=== PATIENT | male | born 1980 | race Caucasian/White ===

== ENCOUNTER → 2017-11-19 09:18 | Outpatient (CLI) | payer OTHER, SELFPAY ==
[2017-11-19 10:26] LABS: Cholesterol 180 mg/dL (200); Follicle Stimulating Hormone 5.5 mIU/mL; Glucose 90 mg/dL (74-106); High Density Lipoprotein 42 mg/dL; Luteinizing Hormone 7.1 mIU/mL; Thyroid Stim Hormone (TSH) 2.01 uIU/mL (0.358-3.74); Triglycerides 106 mg/dL; Very Low Density Lipoprotein 21 mg/dL (5-40)
== END ==
PROVIDERS: Family Provider Family Medicine; PCP Family Medicine; Visit Provider Family Medicine
DX: E29.1 Testicular hypofunction (principal); R63.5 Abnormal weight gain; Z13.1 Encounter for screening for diabetes mellitus; Z13.220 Encounter for screening for lipoid disorders
CPT/HCPCS: 36415; 80061; 82947; 83001; 83002; 84403; 84439; 84443

== ENCOUNTER → 2018-01-13 08:25 | Outpatient (CLI) | payer OTHER, SELFPAY ==
--- NOTE | 2018-01-13 08:27 | RAD_ITS ---
STUDY: X-RAY - LEFT HAND REASON FOR EXAM: Laceration over the thumb. TECHNIQUE: 3 view(s) of the hand. COMPARISON: None. FINDINGS: Normal radiocarpal articulation. Normal distal radioulnar joint. Normal visualized carpal bones. Normal carpal articulations Normal carpometacarpal articulation of the thumb. Normal second through fifth carpometacarpal joints. Normal metacarpi. Normal metacarpophalangeal joint of the thumb. Normal interphalangeal joint of the thumb. Normal proximal and distal phalanges of the thumb. Normal metacarpophalangeal joints of the second through fifth fingers. Normal proximal and distal interphalangeal joints of the second through fifth fingers. Normal phalanges of the second through fifth fingers. The soft tissue structures are unremarkable. RAD/Hand Min 3 Views IMPRESSION: Unremarkable x-ray examination of the left hand. Electronically Signed: Hilario Fung MD at 14:19 EDT Tel , Service support ,
== END ==
PROVIDERS: Family Provider Family Medicine; PCP Family Medicine; Visit Provider Orthopaedic Surgery
DX: S66.222A Laceration of extensor muscle, fascia and tendon of left thumb at wrist and hand level, initial encounter (principal); X58.XXXA Exposure to other specified factors, initial encounter; Y93.9 Activity, unspecified; Y92.9 Unspecified place or not applicable; Y99.9 Unspecified external cause status
CPT/HCPCS: 73130

== ENCOUNTER 2018-01-18 08:43 | Day surgery (SDC) | payer OTHER, SELFPAY ==
[2018-01-18 09:04] VITALS: BP 132/90; PULSE 98; RESP 16; TEMP 36.7; O2SAT 95; BMI 32.4
[2018-01-18] MEDS: Cefazolin 2 GM in 0.9% Normal Saline 100 ML IV (09:41)
[2018-01-18] MEDS: Mupirocin Ointment 22gm Tube 1 APPLIC (11:41)
--- NOTE | 2018-01-18 11:45 | PCM.DC.ORTHO ---
Discharge Diet: No Restrictions - Keep splint on at all times, follow-up in 2 weeks, call if increased pain numbness tingling or other issues arise, if splint gets wet follow-up in office for reapplication Discharge Activity: May Not Drive May shower in (days): 1 Ice area for (Minutes): 20 - Every hour while awake. Weight Bearing Status: Weight bearing as tolerated Keep extremity elevated above heart level: Operative Extremity Call your doctor if your incision/area has: Continuous Slow Oozing, Sudden Increased Bleeding, Increased Pain/ Swelling, Increased Redness, Foul Smelling Discharge Call your doctor if you observe: Fever of 101 or Higher, Coldness, Increased Pain, Numbness or Tingling, Change in Color, Calf discomfort Allergies/Adverse Reactions: Allergies No Known Allergies Allergy (Verified 01/17/18 08:11) Medications to take at Discharge cephalexin 500 mg capsule 500 mg PO Q12H 10 Days #20 cap 01/13/18 Hydrocodone Bitart/Apap 5-325 [[place] 5MG-325MG] 1 - 2 tablet PO Q6H PRN PRN 7 Days #30 tablet 01/18/18 The following prescriptions were given: Hydrocodone Bitart/Apap 5-325 [[place] 5MG-325MG] 1 - 2 tablet PO Q6H PRN PRN 7 Days #30 tablet PRN Reason: Pain Primary Care Physician: Israel Blunt MD [Primary Care Provider] - Please Follow Up With: Nicol Obrien, - [phone]
--- NOTE | 2018-01-18 11:45 | PCM.OPRPT ---
Report of Operation Date of Procedure: 01/18/18 Pre-Operative Diagnosis: Left thumb extensor tendon laceration Post-Operative Diagnosis: same, EPL lack Surgery/Procedure Performed:: Left thumb exploration irrigation debridement wound exploration with left extensor tendon repair and extensor teague repair at level of MP joint Type of Anesthesia:: Block,Radha Anesthesiologist: Sean Barrios Estimated Blood Loss (mL): none Fluids Replaced: 1200ml LR Description of Procedure: Preoperative note Patient is a 37-year-old male who was injured at work when he had a razor blade that using his right hand and sliced through his phalanx of his left thumb. Seen by the now clinic and extensor tendon was obviously well. Seen in our clinic evaluate he is unable to extend his IP joint was but was able to extend his MP joint. Discussion at that point was for irrigation debridement and repair is indicated for his left thumb. Risks benefits and alternatives surgery discussed with patient. Risks including but not limited to blood loss, blood clot, infection, neurovascular injury, failure procedure, need for revision surgery, stiffness, loss of life and loss of limb. Patient is aware like proceed with left extensors tendon repair irrigation debridement wound exploration repair is indicated. Operative note Seen and examined in preoperative holding area. Left thumb was marked. Patient was brought to the operating room placed supine on the operating table. Signing, anesthesia, antibiotics were administered. The left arm was prepped and draped in usual sterile fashion after [place] block was initiated. We used his laceration and extended our incision about a half a centimeter distally and about a centimeter to 2 cm proximally. We then were able to dissect down we will able to visualize the tear of the laceration. The laceration actually went down and was underneath the incorporated into the extensor teague. We had excised the teague of the MP joint we then able to debride back the tendons on the proximal distal to clean tendon edge we then and Krak?w fashion placed to 5-0 Ethibond each extensor compartment to refer EPL repair. We repaired the extensor tendon with the thumb had held in extension we had good active repair in both limbs of the extensor tendon. We then moved to our teague repair we then repaired the teague with Vicryl. We irrigated the incision with copious amounts sterile saline. The incision was closed with deep subcutaneous 4-0 Vicryl and the skin was closed with interrupted 4-0 nylon stitches. Sterile dressings were applied the patient was placed in an extension splint and the tourniquet was deflated for total working time of 60 minutes. The patient tolerated procedure well there are no complications. Next post Operative plan Patient to follow-up in office in 2 weeks Keep incision clean and dry Initiation of occupational therapy in 2 weeks This note was generated with [employer] dictation software. It may contain incorrect words, spelling, and punctuation that were not noted in checking the note before signing.
--- NOTE | 2018-01-18 11:51 | OP.PCM_ITS ---
Report of Operation Date of Procedure: 01/18/18 Pre-Operative Diagnosis: Left thumb extensor tendon laceration Post-Operative Diagnosis: same, EPL lack Surgery/Procedure Performed:: Left thumb exploration irrigation debridement wound exploration with left extensor tendon repair and extensor teague repair at level of MP joint Type of Anesthesia:: Block,Radha Anesthesiologist: Sean Barrios Estimated Blood Loss (mL): none Fluids Replaced: 1200ml LR Description of Procedure: Preoperative note Patient is a 37-year-old male who was injured at work when he had a razor blade that using his right hand and sliced through his phalanx of his left thumb. Seen by the now clinic and extensor tendon was obviously well. Seen in our clinic evaluate he is unable to extend his IP joint was but was able to extend his MP joint. Discussion at that point was for irrigation debridement and repair is indicated for his left thumb. Risks benefits and alternatives surgery discussed with patient. Risks including but not limited to blood loss, blood clot, infection, neurovascular injury, failure procedure, need for revision surgery, stiffness, loss of life and loss of limb. Patient is aware like proceed with left extensors tendon repair irrigation debridement wound exploration repair is indicated. Operative note Seen and examined in preoperative holding area. Left thumb was marked. Patient was brought to the operating room placed supine on the operating table. Signing, anesthesia, antibiotics were administered. The left arm was prepped and draped in usual sterile fashion after [place] block was initiated. We used his laceration and extended our incision about a half a centimeter distally and about a centimeter to 2 cm proximally. We then were able to dissect down we will able to visualize the tear of the laceration. The laceration actually went down and was underneath the incorporated into the extensor teague. We had excised the teague of the MP joint we then able to debride back the tendons on the proximal distal to clean tendon edge we then and Krak?w fashion placed to 5- 0 Ethibond each extensor compartment to refer EPL repair. We repaired the extensor tendon with the thumb had held in extension we had good active repair in both limbs of the extensor tendon. We then moved to our teague repair we then repaired the teague with Vicryl. We irrigated the incision with copious amounts sterile saline. The incision was closed with deep subcutaneous 4-0 Vicryl and the skin was closed with interrupted 4-0 nylon stitches. Sterile dressings were applied the patient was placed in an extension splint and the tourniquet was deflated for total working time of 60 minutes. The patient tolerated procedure well there are no complications. Next post Operative plan Patient to follow-up in office in 2 weeks Keep incision clean and dry Initiation of occupational therapy in 2 weeks This note was generated with [employer] dictation software. It may contain incorrect words, spelling, and punctuation that were not noted in checking the note before signing.
[2018-01-18 11:57] VITALS: BP 132/90; BP 148/104; PULSE 88; RESP 16; TEMP 36.4; O2SAT 97
[2018-01-18 12:03] VITALS: BP 132/101; BP 132/90; PULSE 74; RESP 16; O2SAT 98
[2018-01-18 12:08] VITALS: BP 132/90; BP 135/103; PULSE 76; RESP 16; O2SAT 97
[2018-01-18 12:15] VITALS: BP 128/90; BP 132/90; PULSE 76; RESP 16; TEMP 36.3; O2SAT 96
[2018-01-18 12:40] VITALS: BP 132/90
== END 2018-01-18 12:43 | disposition home or self-care (01) ==
LOC: SDC 08:49 → AC 08:50
PROVIDERS: Family Provider Family Medicine; PCP Family Medicine; Visit Provider Orthopaedic Surgery
PROC: (CPT 26418; principal; 2018-01-18 11:50)
DX: S66.222A Laceration of extensor muscle, fascia and tendon of left thumb at wrist and hand level, initial encounter (principal); W26.0XXA Contact with knife, initial encounter; Y93.89 Activity, other specified; Y92.89 Other specified places as the place of occurrence of the external cause; Y99.0 Civilian activity done for income or pay; F17.200 Nicotine dependence, unspecified, uncomplicated
CPT/HCPCS: 26418; J7120; J2405

== ENCOUNTER 2018-03-30 13:00 | Outpatient (RCR) | payer OTHER, SELFPAY ==
--- NOTE | 2018-02-27 09:16 | HP.OTEVAL ---
Patient's Visit Information PAWEL WITT is a 37 year old M, referred to Occupational Therapy by Nicol Obrien DO, with a diagnosis of left thumb EPL laceration. Date of Evaluation: 02/21/18 Occupational Therapist: Carmen Laura, CHLOER/Ryan, CHT - Subjective Subjective: Pt states he injured his thumb on January 13, 2018 while working he sliced his finger with straight edge knife- pt underwent sx on January 18, 2018. pt working light duty for 6 weeks. 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 - ROM Wrist: Right 65/75 left 55/60 CMC: right 20 left 5 MP: right 60 left 0 IP: right 85 left 0 - Strength Lodging Facilities Manager: right 150 left NT Lateral Pinch: right 22 left NT Tripod Pinch: right 28 Left NT - Sensation Sensation Comments: denies - Hand/Wrist Evaluation Total Score of Pain & Functional Sections: 57 - Goals Goal:: pt will demo a increase in left breaker engineer to 90# or greater to increase ind. with BADLs and IADLS by d/c Goal:: pt will demo increase in left thumb IP flex to 40 degrees of flex. to increase ind with FMS and perfromance of BADLS and IADLS by d/c. pt will demo a increase in MP flex to 35 degrees to increase pt ind with BADLs and IADLS and FMS by d/c Goal:: pt will demo understanding of scar mtg by end of 3rd visit to decrease scar adhesions of left thumb. Goal:100% adherence to protocol: Yes Goal:Daily scar massage when approriate: Yes Goal:ROM equal to unaffected hand: Yes Goal:Lodging Facilities Manager/Pinch strength at least 75% of unaffected hand: Yes Goal:Full use of affected hand in daily activities including: Yes Goal:Decrease scar hypersensitivity: Yes - Rehabilitation General Assessment: S/P EPL repair on 01/18/18. C9 approval was for date of services 02/02/18 - 03/31/18. 2-3x week for 6 weeks-. Pt was delayed in his attendance to his inital OT evaluation 4 weeks an 4 days. with this delay in initiation of OT service pt is currently demo with limited AROM of left thumb. pt demo with scar adhesions and some scar sensitivity. OT will follow EPL tendon repair protocol and make adj to pts HEP based on clinical reasoning and protocol. Today a custom orthosis was kwesi. to cont. to place MP and IP in ext. but allow for CMC and wrist ROM. PT was instructed in Light AROM exercises to wrist and thumb. Pt was instructed to place wrist in slight flex with thumb ROM ex. Rehabilitation Potential: Good - Anticipated Interventions Anticipated Interventions: A/AAROM/PROM, Strengthening, Scar Care, Desensitization, Modalities, Orthoses - Visit Plan Frequency: 2-3x /Week Duration: 6 Weeks TEXT: Thank you for the opportunity to evaluate your patient. For Medicare and Medicare HMO plans, please review the plan of care and approve it. It will need to be FAXED BACK to us at [phone] for Medicare purposes. Please let me know if there are questions or concerns regarding this plan of care. Physician Signature: Date:
--- NOTE | 2018-03-16 16:00 | DT_ITS ---
This patient was seen during an EMR downtime March 13, 2018 - March 20, 2018. This patient may have a combination of paper and electronic documentation or all paper documentation. All documentation is viewable within the e-chart portion of [facility] for each patient visit.
--- NOTE | 2018-06-05 15:58 | HP.OT.NRP ---
HP - Discharge Summary - Patient Information PAWEL WITT was seen in my office for initial evaluation on 02/21/18. The following Plan of Care was established for this patient: Initial Frequency: 2-3x /Week Initial Duration: 6 Weeks Plan: cont to gain functional ROM for BADLs and IADLS - Anticipated Interventions Anticipated Interventions: A/AAROM/PROM, Strengthening, Scar Care, Desensitization, Modalities, Orthoses This patient was last seen in our office 03/30/18. Pertinent comments regarding their Occupational therapy will appear below: PT seen for 12 OT visits. He was progressing well- after 12 visits pt did not schedule any further apts and due to time laps in tx pt D/C at this time. At this point I will be discontinuing this patient from occupational therapy. I would be happy to see this patient again in the future if found appropriate by the physician. Thank you! Carmen Laura, OTR/L, CHT
== END 2018-03-30 19:00 | disposition home or self-care (01) ==
LOC: OT 13:00
PROVIDERS: Family Provider Family Medicine; PCP Family Medicine; Visit Provider Orthopaedic Surgery
DX: S66.222D Laceration of extensor muscle, fascia and tendon of left thumb at wrist and hand level, subsequent encounter (principal)
CPT/HCPCS: 97035; 97110; 97140; 97166

== ENCOUNTER → 2018-12-11 13:51 | Outpatient (CLI) | payer BC, SELFPAY ==
--- NOTE | 2018-12-11 13:53 | CDU_ITS ---
Reason For Study: Pulsatile Tinnitis Rt. Velocities/BP Lt. Velocities/BP Prox CCA 76/21 cm/sec. Prox CCA 75/20 cm/sec. Mid CCA 84/24 cm/sec. Mid CCA 80/27 cm/sec. Dist CCA 76/20 cm/sec. Dist CCA 68/26 cm/sec. Prox ICA 64/26 cm/sec. Prox ICA 69/29 cm/sec. Mid ICA 70/31 cm/sec. Mid ICA 71/35 cm/sec. Dist ICA 73/33 cm/sec. Dist ICA 77/35 cm/sec. Rt. ICA/CCA = 0.87. Lt. ICA/CCA = 0.96. Prox ECA 115/25 cm/sec. Prox ECA 83/21 cm/sec. Rt. Vert. 45/17 cm/sec. Lt. Vert. 38/15 cm/sec. Right Extracranial There is no significant atherosclerotic plaque noted in the right common carotid artery. There is no significant atherosclerotic plaque noted in the right internal carotid artery. There is no significant atherosclerotic plaque noted in the right external carotid artery. Antegrade flow is noted in the right vertebral artery. Left Extracranial There is no significant atherosclerotic plaque noted in the left common carotid artery. There is no significant atherosclerotic plaque noted in the left internal carotid artery. There is no significant atherosclerotic plaque noted in the left external carotid artery. Antegrade flow is noted in the left vertebral artery. Procedure Carotid Duplex [id number]. Exam performed in department. Interpretation Summary No significant atherosclerotic plaque or stenosis noted in the internal carotid arteries bilaterally. Flow within the vertebral arteries is antegrade bilaterally. Ordering Physician: Israel Blunt Referring Physician: Israel Blunt Performed By: Ramya Kong, RDCS, RVT
== END ==
PROVIDERS: Family Provider Family Medicine; PCP Family Medicine; Referring Provider Family Medicine; Visit Provider Family Medicine
DX: H93.A9 Pulsatile tinnitus, unspecified ear (principal)
CPT/HCPCS: 93880

== ENCOUNTER → 2023-05-18 | Outpatient (CLI) | payer BC, SELFPAY ==
[2023-05-18 12:02] LABS: Absolute Lymphocyte Count 2.16 X10^3/uL (0.83-4.51); Absolute Neutrophil Count 4.4 X10^3/uL (2.0-7.7); Basophil# 0.05 X10^3/uL; Basophil% 0.7 % (0-1); Eosinophil# 0.11 X10^3/uL; Eosinophils% 1.5 % (0-5); Hematocrit 48.1 % (40-54); Hemoglobin 16.6 g/dL (13.0-16.5); Lymphocyte # 2.16 X10^3/ul (0.83-4.51); Lymphocyte % 29.2 % (19-41); Mean Corp Hgb Conc 34.5 g/dL (32-36); Mean Corpuscular Hgb 30.8 pg (27.0-32.0); Mean Corpuscular Volume 89.2 fL (80-94); Mean Platelet Vol. 9.5 fl (6.2-12.0); Monocyte# 0.66 X10^3/uL; Monocyte% 8.9 % (0-10); NRBC Flagged by Analyzer 0 % (0-5); Neutrophil # 4.39 X10^3/uL (2.7-7.7); Neutrophil % 59.3 % (47-70); Platelet Count 281 K/mm3 (150-450); RBC Distribution Width CV 12.5 % (11.6-14.6); RBC Distribution Width SD 40.9 fl (35.1-43.9); Red Blood Count 5.39 M/mm3 (4.6-6.2); White Blood Count 7.4 K/mm3 (4.4-11.0)
[2023-05-18 12:22] LABS: ALB/GLOB Ratio 1.2 RATIO (0.9-2.4); AST(SGOT) 22 U/L (15-37); Alanine Aminotransfer ALT/SGPT 51 U/L (16-61); Albumin, Serum 3.7 g/dL (3.2-5.0); Alkaline Phosphatase 61 U/L (45-117); Anion Gap 5 (5-15); BUN 15 mg/dL (7-18); BUN/Creat Ratio 13.2 RATIO (10-20); Calcium,Total 8.7 mg/dL (8.5-10.1); Chloride 108 mmol/L (98-107); Cholesterol 182 mg/dL (200); Creatinine, Serum 1.14 mg/dL (0.70-1.30); EST Glomerular Filtration Rate 75 mL/min (>60); Est Glom Filt Rate - Afr Amer 91 mL/min (>60); Globulin 3.1 g/dL (2.2-4.2); Glucose 96 mg/dL (74-106); High Density Lipoprotein 44 mg/dL; PSA,Total - Annual Screen 0.99 ng/mL (0.00-4.00); Potassium 4.1 mmol/L (3.5-5.1); Protein, Total 6.8 g/dL (6.4-8.2); Sodium Level 140 mmol/L (136-145); Triglycerides 104 mg/dL; Very Low Density Lipoprotein 21 mg/dL (5-40)
== END | disposition home or self-care (01) ==
LOC: BFHLAB 08:34
PROVIDERS: PCP Nurse Practitioner Family; Referring Provider Nurse Practitioner Family; Visit Provider Nurse Practitioner Family
DX: Z00.01 Encounter for general adult medical examination with abnormal findings (principal); Z12.5 Encounter for screening for malignant neoplasm of prostate
CPT/HCPCS: 36415; 80053; 80061; 84153; 85025; G0103

== ENCOUNTER → 2025-05-28 | Outpatient (CLI) | payer BC, SELFPAY ==
[2025-05-28 10:13] LABS: Hematocrit 46.4 % (40-54); Hemoglobin 16.0 g/dL (13.0-16.5); Immature Granulocytes Count 0.010 X10^3/uL (0.0-0.0); Mean Corp Hgb Conc 34.5 g/dL (32-36); Mean Corpuscular Volume 90.4 fL (80-94); Mean Platelet Vol. 9.3 fl (6.2-12.0); NRBC Flagged by Analyzer 0 % (0-5); Platelet Count 277 K/mm3 (150-450); RBC Distribution Width CV 12.1 % (11.6-14.6); RBC Distribution Width SD 40.3 fl (35.1-43.9); Red Blood Count 5.13 M/mm3 (4.6-6.2); White Blood Count 6.9 K/mm3 (4.4-11.0)
[2025-05-28 10:54] LABS: AST(SGOT) 24 U/L (<=37); Alanine Aminotransfer ALT/SGPT 38 U/L (<=46); Albumin, Serum 4.2 g/dL (3.5-5.0); Alkaline Phosphatase 67 U/L (40-129); Anion Gap 13 (5-15); BUN 13 mg/dL (4-19); BUN/Creat Ratio 13.4 RATIO (10-20); Calcium,Total 9.3 mg/dL (7.6-11.0); Carbon Dioxide 22.2 mmol/L (21.0-32.0); Chloride 105 mmol/L (98-108); Cholesterol 204 mg/dL (<=200); Globulin 2.1 g/dL (2.2-4.2); Glucose 96 mg/dL (70-99); Low Density Lipoprotein Calc. 119 mg/dL; PSA,Total - Annual Screen 0.76 ng/mL (0.02-4.00); Potassium 4.0 mmol/L (3.3-5.1); Triglycerides 197 mg/dL; Very Low Density Lipoprotein 39 mg/dL (5-40); cholesterol:hdl ratio screen 4.45
== END | disposition home or self-care (01) ==
LOC: MTLAB 08:31
PROVIDERS: PCP Nurse Practitioner Family; Referring Provider Nurse Practitioner Family; Visit Provider Nurse Practitioner Family
DX: Z00.01 Encounter for general adult medical examination with abnormal findings (principal); Z12.5 Encounter for screening for malignant neoplasm of prostate
CPT/HCPCS: 36415; 80053; 80061; 84153; 85025; G0103